=== PATIENT | male | born 1950 | race Caucasian/White ===

== ENCOUNTER 2017-01-12 10:29 | Outpatient (CLI) | payer OTHER | END 2017-01-12 10:30 | disposition home or self-care (01) | DX: N42.89 Other specified disorders of prostate (principal) ==

== ENCOUNTER 2017-02-15 10:02 | Outpatient (CLI) | payer OTHER | END 2017-02-15 10:03 | disposition home or self-care (01) | DX: M16.0 Bilateral primary osteoarthritis of hip (principal) ==

== ENCOUNTER 2017-06-13 07:38 | Outpatient (CLI) | payer OTHER ==
[2017-06-13 08:09] LABS: BASOPHILS % (AUTO) 0.6 %; EOSINOPHILS # (AUTO) 0.2 10^3/uL (0.0-0.7); EOSINOPHILS % (AUTO) 3.1 %; HGB - HEMOGLOBIN 14.4 g/dL (14.0-18.0); LYMPHOCYTES # (AUTO) 2.5 10^3/uL (1.5-3.5); LYMPHOCYTES % (AUTO) 31.2 %; MEAN CORPUSCULAR HGB CONC 33.6 g/dL (32.0-36.0); MEAN CORPUSCULAR VOLUME 89.3 fL (80.0-94.0); MEAN PLATELET VOLUME 7.1 fL (7.4-11.4); MONOCYTES # (AUTO) 0.7 10^3/uL (0.0-1.0); MONOCYTES % (AUTO) 8.8 %; NEUTROPHILS # (AUTO) 4.5 10^3/uL (1.5-6.6); NEUTROPHILS % (AUTO) 56.3 %; RED BLOOD COUNT 4.81 10^6/uL (4.70-6.10); RED CELL DISTRIBUTION WIDTH 13.5 % (12.0-15.0); UNCORRECTED WHITE BLOOD COUNT 7.9 x10^3/uL; WHITE BLOOD COUNT 7.9 x10^3/uL (4.8-10.8)
[2017-06-13 08:28] LABS: ALBUMIN/GLOBULIN RATIO 1.4 (1.0-2.2); BILIRUBIN,TOTAL 0.6 mg/dL (0.2-1.0); BUN - BLOOD UREA NITROGEN 19 mg/dL (6-20); CALCIUM 8.8 mg/dL (8.5-10.3); CARBON DIOXIDE - CO2 28 mmol/L (21-32); CHLORIDE 106 mmol/L (101-111); CHOL/HDL RATIO 4.5 (<5.0); CHOLESTEROL 200 mg/dL; CREATININE 0.9 mg/dL (0.6-1.2); GFR - MDRD 84 (>89); GLUCOSE 105 mg/dL (70-100); HDL CHOLESTEROL 44 mg/dL; LDL/HDL RATIO 2.8 (<3.6); POTASSIUM 3.7 mmol/L (3.5-5.0); SODIUM 140 mmol/L (135-145); TOTAL PROTEIN 6.6 g/dL (6.7-8.2); TRIGLYCERIDES 163 mg/dL; VLDL CHOLESTEROL 33 mg/dL
== END 2017-06-13 07:39 | disposition home or self-care (01) ==
LOC: LAB 07:38
PROVIDERS: ATTEND Internal Medicine
DX: E78.2 Mixed hyperlipidemia (principal); Z79.899 Other long term (current) drug therapy
CPT/HCPCS: 36415; 80053; 80061; 84443; 85025

== ENCOUNTER 2017-08-22 15:41 | Outpatient (CLI) | payer OTHER ==
[2017-08-22 16:58] LABS: PSA FREE 0.61 ng/mL (0.16-2.81)
[2017-08-22 16:59] LABS: PSA TOTAL 4.29 ng/mL (0.000-2.000)
== END 2017-08-22 15:42 | disposition home or self-care (01) ==
LOC: LAB 15:41
PROVIDERS: ATTEND Internal Medicine
DX: Z87.898 Personal history of other specified conditions (principal)
CPT/HCPCS: 36415; 84154

== ENCOUNTER 2018-06-21 08:08 | Outpatient (CLI) | payer OTHER ==
[2018-06-21 13:34] LABS: BASOPHILS % (AUTO) 0.5 %; EOSINOPHILS # (AUTO) 0.2 10^3/uL (0.0-0.7); EOSINOPHILS % (AUTO) 2.4 %; LYMPHOCYTES # (AUTO) 2.1 10^3/uL (1.5-3.5); LYMPHOCYTES % (AUTO) 25.4 %; MEAN CORPUSCULAR HEMOGLOBIN 29.8 pg (27.0-31.0); MEAN CORPUSCULAR HGB CONC 33.9 g/dL (32.0-36.0); MEAN PLATELET VOLUME 7.6 fL (7.4-11.4); MONOCYTES # (AUTO) 0.6 10^3/uL (0.0-1.0); MONOCYTES % (AUTO) 7.4 %; NEUTROPHILS # (AUTO) 5.3 10^3/uL (1.5-6.6); NEUTROPHILS % (AUTO) 64.3 %; PLT - PLATELET COUNT 355 10^3/uL (130-450); RED BLOOD COUNT 4.71 10^6/uL (4.70-6.10); WHITE BLOOD COUNT 8.2 x10^3/uL (4.8-10.8)
[2018-06-21 13:50] LABS: ALBUMIN 3.5 g/dL (3.2-5.5); ALBUMIN/GLOBULIN RATIO 1.1 (1.0-2.2); ALKALINE PHOSPHATASE 67 IU/L (42-121); ALT ALANINE AMINOTRANSFERASE 16 IU/L (10-60); AST ASPARTATE AMINOTRANSFERASE 17 IU/L (10-42); BILIRUBIN,TOTAL 1.1 mg/dL (0.2-1.0); BUN - BLOOD UREA NITROGEN 17 mg/dL (6-20); CALCIUM 8.6 mg/dL (8.5-10.3); CARBON DIOXIDE - CO2 29 mmol/L (21-32); CHLORIDE 103 mmol/L (101-111); CHOL/HDL RATIO 3.6 (<5.0); CHOLESTEROL 158 mg/dL; CREATININE 0.9 mg/dL (0.6-1.2); GFR - MDRD 84 (>89); GLUCOSE 94 mg/dL (70-100); HDL CHOLESTEROL 44 mg/dL; LDL CHOLESTEROL,CALCULATED 93 mg/dL; LDL/HDL RATIO 2.1 (<3.6); SODIUM 137 mmol/L (135-145); TOTAL PROTEIN 6.8 g/dL (6.7-8.2); VLDL CHOLESTEROL 21 mg/dL
[2018-06-21 13:56] LABS: PSA FREE 0.41 ng/mL (0.16-2.81); PSA TOTAL 4.18 ng/mL (0.000-2.000)
== END 2018-06-21 08:09 | disposition home or self-care (01) ==
LOC: LAB.R 08:08
PROVIDERS: ATTEND Internal Medicine
DX: R97.20 Elevated prostate specific antigen [PSA] (principal); E78.5 Hyperlipidemia, unspecified; Z79.899 Other long term (current) drug therapy
CPT/HCPCS: 80053; 80061; 83721; 84154; 85025

== ENCOUNTER 2019-01-09 13:35 | Outpatient (CLI) | payer OTHER ==
[2019-01-09 16:37] LABS: PSA FREE 0.47 ng/mL (0.16-2.81)
[2019-01-09 16:38] LABS: PSA TOTAL 4.39 ng/mL (0.000-2.000)
== END 2019-01-09 23:59 | disposition home or self-care (01) ==
LOC: LAB.R 13:35
PROVIDERS: ATTEND Internal Medicine
DX: R97.20 Elevated prostate specific antigen [PSA] (principal)
CPT/HCPCS: 84153; 84154

== ENCOUNTER 2019-09-19 10:20 | Outpatient (CLI) | payer OTHER ==
[2019-09-19 10:33] LABS: BASOPHILS # (AUTO) 0.1 10^3/uL (0.0-0.1); BASOPHILS % (AUTO) 0.6 %; EOSINOPHILS # (AUTO) 0.1 10^3/uL (0.0-0.7); EOSINOPHILS % (AUTO) 1.8 %; HGB - HEMOGLOBIN 15.4 g/dL (14.0-18.0); LYMPHOCYTES # (AUTO) 2.5 10^3/uL (1.5-3.5); LYMPHOCYTES % (AUTO) 31.4 %; MEAN CORPUSCULAR HEMOGLOBIN 30.4 pg (27.0-31.0); MEAN CORPUSCULAR HGB CONC 33.3 g/dL (32.0-36.0); MEAN CORPUSCULAR VOLUME 91.5 fL (80.0-94.0); MEAN PLATELET VOLUME 9.2 fL (7.4-11.4); MONOCYTES # (AUTO) 0.6 10^3/uL (0.0-1.0); MONOCYTES % (AUTO) 7.2 %; NEUTROPHILS # (AUTO) 4.6 10^3/uL (1.5-6.6); NEUTROPHILS % (AUTO) 58.6 %; PLT - PLATELET COUNT 313 10^3/uL (130-450); RED BLOOD COUNT 5.06 10^6/uL (4.70-6.10); RED CELL DISTRIBUTION WIDTH 13.1 % (12.0-15.0); WHITE BLOOD COUNT 7.9 x10^3/uL (4.8-10.8)
[2019-09-19 10:52] LABS: ALBUMIN 4.5 g/dL (3.2-5.5); ALBUMIN/GLOBULIN RATIO 1.5 (1.0-2.2); ALKALINE PHOSPHATASE 65 IU/L (42-121); ALT ALANINE AMINOTRANSFERASE 22 IU/L (10-60); AST ASPARTATE AMINOTRANSFERASE 24 IU/L (10-42); BUN - BLOOD UREA NITROGEN 13 mg/dL (6-20); CARBON DIOXIDE - CO2 26 mmol/L (21-32); CHLORIDE 103 mmol/L (101-111); CHOL/HDL RATIO 4.2 (<5.0); CHOLESTEROL 242 mg/dL; CREATININE 0.9 mg/dL (0.6-1.2); GFR - MDRD 84 (>89); GLUCOSE 96 mg/dL (70-100); HDL CHOLESTEROL 57 mg/dL; LDL CHOLESTEROL,CALCULATED 156 mg/dL; LDL/HDL RATIO 2.7 (<3.6); SODIUM 140 mmol/L (135-145); TOTAL PROTEIN 7.5 g/dL (6.7-8.2); VLDL CHOLESTEROL 29 mg/dL
[2019-09-19 11:34] LABS: PSA TOTAL 4.53 ng/mL (0.000-2.000)
[2019-09-19 11:59] LABS: PSA FREE 0.48 ng/mL (0.16-2.81)
== END 2019-09-19 10:21 | disposition home or self-care (01) ==
LOC: LAB 10:20
PROVIDERS: ATTEND Family Medicine
DX: G47.33 Obstructive sleep apnea (adult) (pediatric) (principal); R97.20 Elevated prostate specific antigen [PSA]; E78.5 Hyperlipidemia, unspecified
CPT/HCPCS: 36415; 80053; 80061; 83721; 84153; 84154; 84443; 85025

== ENCOUNTER 2019-10-05 12:40 | Outpatient (CLI) | payer OTHER | END 2019-10-05 12:41 | disposition home or self-care (01) | LOC: LAB 12:40 | PROVIDERS: ATTEND Family Medicine | DX: R97.20 Elevated prostate specific antigen [PSA] (principal) | CPT/HCPCS: 36415; 84153 ==

== ENCOUNTER 2020-09-19 07:35 | Outpatient (CLI) | payer OTHER ==
[2020-09-19 07:54] LABS: BASOPHILS % (AUTO) 0.5 %; EOSINOPHILS # (AUTO) 0.2 10^3/uL (0.0-0.7); EOSINOPHILS % (AUTO) 2.3 %; HGB - HEMOGLOBIN 15.3 g/dL (14.0-18.0); LYMPHOCYTES # (AUTO) 2.5 10^3/uL (1.5-3.5); LYMPHOCYTES % (AUTO) 31.5 %; MEAN CORPUSCULAR HEMOGLOBIN 30.7 pg (27.0-31.0); MEAN CORPUSCULAR HGB CONC 33.9 g/dL (32.0-36.0); MEAN CORPUSCULAR VOLUME 90.6 fL (80.0-94.0); MEAN PLATELET VOLUME 8.7 fL (7.4-11.4); MONOCYTES # (AUTO) 0.7 10^3/uL (0.0-1.0); MONOCYTES % (AUTO) 8.8 %; NEUTROPHILS # (AUTO) 4.5 10^3/uL (1.5-6.6); NEUTROPHILS % (AUTO) 56.4 %; PLT - PLATELET COUNT 325 10^3/uL (130-450); RED BLOOD COUNT 4.98 10^6/uL (4.70-6.10); RED CELL DISTRIBUTION WIDTH 12.7 % (12.0-15.0)
[2020-09-19 08:22] LABS: ALBUMIN/GLOBULIN RATIO 1.3 (1.0-2.2); ALKALINE PHOSPHATASE 64 IU/L (42-121); ALT ALANINE AMINOTRANSFERASE 22 IU/L (10-60); AST ASPARTATE AMINOTRANSFERASE 19 IU/L (10-42); BILIRUBIN,TOTAL 0.6 mg/dL (0.2-1.0); BUN - BLOOD UREA NITROGEN 15 mg/dL (6-20); CARBON DIOXIDE - CO2 28 mmol/L (21-32); CHLORIDE 101 mmol/L (101-111); CHOL/HDL RATIO 4.6 (<5.0); CHOLESTEROL 204 mg/dL; CREATININE 0.9 mg/dL (0.6-1.2); GLUCOSE 97 mg/dL (70-100); HDL CHOLESTEROL 44 mg/dL; LDL CHOLESTEROL,CALCULATED 118 mg/dL; LDL/HDL RATIO 2.7 (<3.6); SODIUM 140 mmol/L (135-145); VLDL CHOLESTEROL 42 mg/dL
== END 2020-09-19 07:36 | disposition home or self-care (01) ==
LOC: LAB 07:35
PROVIDERS: ATTEND Family Medicine
DX: Z00.00 Encounter for general adult medical examination without abnormal findings (principal); M25.562 Pain in left knee; M16.0 Bilateral primary osteoarthritis of hip; Z12.5 Encounter for screening for malignant neoplasm of prostate; E78.5 Hyperlipidemia, unspecified; G47.33 Obstructive sleep apnea (adult) (pediatric)
CPT/HCPCS: 36415; 80053; 80061; 83721; 84153; 85025

== ENCOUNTER 2021-06-21 20:17 | Emergency (ER) | payer OTHER, MEDICARE ==
--- NOTE | 2021-06-21 21:44 | ED Physician Documentation ---
History of Present Illness - Stated complaint Stated Complaint: LT KNEE PX - Chief complaint Chief Complaint: Trauma Ext - History obtained from History obtained from: Patient - History of Present Illness Pain level max: 1 Pain level now: 1 - Additonal information Additional information: Patient is a 70-year-old male who presents to the emergency department after a left knee injury today. He states that he was getting out of a truck and felt like his knee gave way. Now he states the knee feels unstable whenever he attempts to walk. Review of Systems Constitutional: denies: Fever, Chills GI: denies: Vomiting : denies: Dysuria Skin: denies: Rash Musculoskeletal: denies: Neck pain, Back pain Neurologic: denies: Headache PD PAST MEDICAL HISTORY - Past Medical History Past Medical History: Yes Cardiovascular: Other Respiratory: Sleep apnea, CPAP use Endocrine/Autoimmune: None GI: None : None HEENT: None Psych: None Musculoskeletal: Other Derm: None - Past Surgical History Past Surgical History: Yes Ortho: Hip replacement, Knee replacement - Present Medications Home Medications: Ambulatory Orders Medication Instructions Recorded Confirmed Aspirin [Aspir 81] 81 mg PO DAILY 02/02/14 06/21/21 - Allergies Allergies/Adverse Reactions: Allergies Allergy/AdvReac Type Severity Reaction Status Date / Time codeine AdvReac Nausea Verified 06/21/21 20:28 - Social History Does the pt smoke?: No Smoking Status: Never smoker Does the pt drink ETOH?: Yes ETOH Use: Beer Does the pt have substance abuse?: Yes Substance Use and Type: Marijuana - Immunizations Immunizations are current?: Yes Immunizations: TDAP >10years/unknown PD ED PE NORMAL - Vitals Vital signs reviewed: Yes - General General: Alert and oriented X 3, No acute distress - Derm Derm: Warm and dry - Extremities Extremities: Other (Left knee - No tenderness. There is laxity of the MCL. LCL, ACL, PCL are intact. No tenderness along the meniscus. Mild joint effusion. Neurovascularly intact. Otherwise normal exam) - Neuro Neuro: Alert and oriented X 3 - Psych Psych: Normal mood, Normal affect Results - Vitals Vitals: Oxygen O2 Source Room air - Rads (name of study) Left knee x-ray Radiology: Final report received, EMP read contemporaneously, See rad report (possible tibial plateau fracture.) Left knee CT Radiology: Final report received, EMP read contemporaneously, See rad report (IMPRESSION: 1. Mild to moderate knee joint effusion. 2. Mild tricompartment osteophytosis. 3. Tiny intra-articular bodies. 4. No definite fractures seen. ) PD MEDICAL DECISION MAKING - ED course Complexity details: reviewed results, re-evaluated patient, considered differential, d/w patient ED course: 70-year-old male with what appears to be a left knee sprain. He does have a joint effusion could have a meniscus injury. He is placed in a articulating knee brace and using a walker he is ambulating without difficulty. Is not black ving any pain in the knee. We will have him follow-up closely with his orthopedist for further care and reassessment when the swelling has decreased. Patient counseled regarding signs and symptoms for which I believe and urgent re-evaluation would be necessary. Patient with good understanding of and agreement to plan and is comfortable going home at this time This document was made in part using voice recognition software. While efforts are made to proofread this document, sound alike and grammatical errors may occur. Departure - Departure Disposition: 01 Home, Self Care Clinical Impression: Knee effusion, left Knee MCL sprain Qualifiers: Encounter type: initial encounter Laterality: left Qualified Code(s): S83.412A - Sprain of medial collateral ligament of left knee, initial encounter Condition: Good Instructions: ED Effusion Knee, ED Sprain Knee Follow-Up: your,doctor in 1 week [Other] Jon Mckeon DO [Physician No Access] - Comments: wear the brace at home and until you see orthopedics. you should have a repeat exam this week with orthopedics. Use the walker to help you ambulate safely. Discharge Date/Time: 06/21/21 23:25
[2021-06-21 23:17] VITALS: BP 155/91
--- NOTE | 2021-06-21 23:34 | ED Physician Documentation ---
ED Addendum - Addendum Addendum: 06/21/21 23:33 Patient is insistent that the tibial plateau fracture on xray is old and does not want to wait for CT read. He requested I call him if anything concerning is uncovered. He is ambulatory on the limb without pain. strict return precautions given. impression 1. knee pain 2. knee effusion 06/22/21 03:34 d/w radiology - no evidence of acute fracture on CT
--- NOTE | 2021-06-22 14:23 | CT Report ---
PROCEDURE: LOWER EXTREMITY CT WITHOUT CONTRAST-LEFT (LONG BONE EVALUATION) INDICATIONS: knee injury TECHNIQUE: Noncontrast 3 mm axial sections acquired of the left knee, with coronal and sagittal reformats. COMPARISON: Prior plain films from the same date are not available for comparison due to areas in in cluding the correct birthdate on the plain films, apparently. FINDINGS: Image quality: Excellent. Bones: There is mild tricompartment osteophytosis. No definite fractures identified. Tiny intra-inna cular bodies. Soft tissues: Mild to moderate knee joint effusion. IMPRESSION: 1. Mild to moderate knee joint effusion. 2. Mild tricompartment osteophytosis. 3. Tiny intra-articular bodies. 4. No definite fractures seen. Comment: If clinically suspect occult fracture, consider left knee MRI. Above discussed with Yvonne Castañeda at the time of dictation. Reviewed by: Miko Mortensen MD on 06/22/2021 12:08 AM PDT Approved by: Miko Mortensen MD on 06/22/2021 12:08 AM PDT Station ID: [id number]
--- NOTE | 2021-06-25 15:04 | XRAY Report ---
PROCEDURE: Knee 3 View LT INDICATIONS: Knee joint pain, left TECHNIQUE: 3 views of the left knee. COMPARISON: None. FINDINGS: There is questionable mild osseous irregularity at the posterolateral aspect of the lateral tibial pl ateau and also possibly the medial portion of the medial tibial plateau, seen on oblique view only. S mall joint effusion. Mild subcutaneous soft tissue edema is seen at the medial aspect of the knee. IMPRESSION: Tiny areas of possible cortical irregularity at the peripheral portions of the medial and lateral tib ial plateaus, and a small fracture is not excluded. Small joint effusion. Findings may be further rosina luated with CT if indicated clinically. Reviewed by: Keaton Lynn MD on 06/21/2021 9:53 PM PDT Approved by: Keaton Lynn MD on 06/21/2021 9:53 PM PDT Station ID: [id number]
== END 2021-06-21 23:25 | disposition home or self-care (01) ==
LOC: ED 20:17
DX: S83.412A Sprain of medial collateral ligament of left knee, initial encounter (principal); W17.89XA Other fall from one level to another, initial encounter; Y93.39 Activity, other involving climbing, rappelling and jumping off; Y92.812 Truck as the place of occurrence of the external cause; Y99.0 Civilian activity done for income or pay
CPT/HCPCS: 99282; 99284

== ENCOUNTER 2021-07-24 11:22 | Day surgery (SDC) | payer MEDICARE, OTHER ==
[2021-07-24] MEDS ORDERED: LACTATED RINGERS 1,000 ML IV ONE (11:25)
--- NOTE | 2021-07-24 12:23 | HISTORY & PHYSICAL EXAMINATION ---
Chief Complaint - Chief Complaint Chief Complaint: History of colon polyps History of Present Illness - History Obtained From Records Reviewed: yes History obtained from: pt Exam Limitations: none - History of Present Illness HPI Comment/Other: History of polyps. Last colonoscopy 10 years ago. Diverticulosis, no polyps. Here for surveillance colonoscopy. History - Past Medical History Cardiovascular: reports: Other Respiratory: reports: Sleep apnea, CPAP use Endocrine/Autoimmune: reports: None GI: reports: None : reports: None HEENT: reports: None Psych: reports: None Musculoskeletal: reports: Other Derm: reports: None MRSA Hx?: No - Past Surgical History General: reports: Colonoscopy Ortho: reports: Hip replacement, Knee replacement Meds/Allgy - Home Medications Home Medications: Ambulatory Orders Medication Instructions Recorded Confirmed Aspirin [Aspir 81] 81 mg PO DAILY 02/02/14 07/24/21 Acetaminophen [Acetaminophen Extra 2 tab PO DAILY 07/24/21 07/24/21 Strength] - Allergies Allergies/Adverse Reactions: Allergies Allergy/AdvReac Type Severity Reaction Status Date / Time codeine AdvReac Nausea Verified 06/21/21 20:28 Review of Systems - Other Findings Other Findings: 10 pt ros as above otherwise unremarkable Exam - Vital Signs Reviewed Vital Signs: Yes Vital Signs: Vital Signs x48h Temp Pulse Resp BP Pulse Ox 07/24/21 11:27 36.5 C 71 16 152/99 H 99 - Physical Exam General Appearance: positive: Alert Eyes Bilateral: positive: PERRL, EOMI ENT: positive: No signs of dehydration Neck: positive: No JVD Respiratory: positive: Breath sounds nml Cardiovascular: positive: Regular rate & rhythm Abdomen: positive: Non-tender, No distention Neurologic/Psychiatric: positive: Oriented x3 Conclusion/Plan - Problem List (1) History of adenomatous polyp of colon Conclusion/Plan: plan surveillance colonoscopy. parq held and consent obtained
[2021-07-24] MEDS ORDERED: fentaNYL 250 MCG/5 ML VIAL ONE (12:34)
[2021-07-24] MEDS ORDERED: MIDAZOLAM 2 MG/2 ML VIAL ONE ×3 (12:34→13:01)
[2021-07-24] MEDS ORDERED: LACTATED RINGERS 600 ML IV ONE (13:48)
[2021-07-24 14:12] VITALS: BP 155/96
== END 2021-07-24 11:23 | disposition home or self-care (01) ==
LOC: SDS 11:22
PROVIDERS: ATTEND Surgery
DX: Z12.11 Encounter for screening for malignant neoplasm of colon (principal); K57.30 Diverticulosis of large intestine without perforation or abscess without bleeding; Z86.010 Personal history of colon polyps; G47.30 Sleep apnea, unspecified
CPT/HCPCS: G0105; J3010; J7120

== ENCOUNTER 2023-09-13 17:30 | Outpatient (CLI) | payer OTHER ==
--- NOTE | 2023-09-14 10:00 | XRAY Report ---
PROCEDURE: Foot 3 View RT INDICATIONS: CONTUSION OF RIGHT FOOT,INITIAL ENCOUNTER TECHNIQUE: 3 views of the foot were acquired. COMPARISON: None. FINDINGS: Bones: No fractures or dislocations. No suspicious bony lesions. Soft tissues: No suspicious soft tissue calcifications or masses. IMPRESSION: First MTP degenerative change. No acute bony abnormality. If pain persists with conservative manageme nt, consider repeat radiographs in 10-14 days or cross-sectional imaging. Reviewed by: Miko Mortensen MD on 09/14/2023 9:59 AM PDT Approved by: Miko Mortensen MD on 09/14/2023 9:59 AM PDT Station ID: [id number]
== END 2023-09-13 17:31 | disposition home or self-care (01) ==
LOC: DI 17:30
PROVIDERS: ATTEND Nurse Practitioner
DX: S90.31XA Contusion of right foot, initial encounter (principal); M19.071 Primary osteoarthritis, right ankle and foot

== ENCOUNTER 2024-06-29 11:09 | Outpatient (CLI) | payer OTHER | END 2024-06-29 11:10 | disposition home or self-care (01) | LOC: LAB 11:09 | PROVIDERS: ATTEND Urology | DX: C61 Malignant neoplasm of prostate (principal) | CPT/HCPCS: 36415; 84153 ==